=== PATIENT | male | born 1995 | race Hispanic/Latino ===

== ENCOUNTER 2022-07-12 10:44 | Day surgery (SDC) | payer OTHER ==
[~2022-07-12] VITALS: Ht 170.2 cm; Wt 101.6 kg
[~2022-07-12 10:44] MED LIST: LIDOCAINE 2% 100MG/5ML SDV (FOR ANES.) As Ordered ONE; MIDAZOLAM INJ 2MG/2ML VIAL (J2250 PER 1MG) As Ordered ONE; ONDANSETRON 4MG 2ML VIAL As Ordered ONE; ROCURONIUM BROMIDE 50 MG/5 ML VIAL As Ordered ONE; dexameTHASONE 4 MG/ML 1ML VIAL (J1100 PER 1MG) As Ordered ONE; fentaNYL 250 MCG/5 ML INJECTION As Ordered ONE; propofoL 200 MG/20 ML VIAL As Ordered ONE
[2022-07-12] MEDS ORDERED: LR 1,000 ML IV SCH (11:05)
[2022-07-12] MEDS ORDERED: OXYMETAZOLINE 0.05% NASAL SPRAY (AFRIN) As Ordered ONE (12:00)
[2022-07-12] MEDS ORDERED: BUPIVACAINE/EPIN 0.5% 30 ML VIAL As Ordered ONE (12:00)
[2022-07-12] MEDS ORDERED: METHYLENE BLUE 0.5% (5MG/ML) 10 ML AMP (PROVAYBLUE) As Ordered ONE (12:00)
[2022-07-12] MEDS ORDERED: ACETAMINOPHEN 1000MG 100ML IV BAG As Ordered ONE (12:12)
[2022-07-12] MEDS ORDERED: SUGAMMADEX SODIUM 500 MG/5 ML VIAL (BRIDION) As Ordered ONE (12:31)
[2022-07-12] MEDS ORDERED: oxyCODONE 5MG TAB PO PRN (13:05)
[2022-07-12] MEDS ORDERED: ONDANSETRON 4MG 2ML VIAL IV PRN ×2 (13:05→13:35)
[2022-07-12] MEDS: fentaNYL 100 MCG/2 ML INJECTION IV PRN ×2 (13:27→13:43)
[2022-07-12] MEDS ORDERED: HYDROcodone/APAP LIQUID 7.5-325MG 15ML UDC (LORTAB ELIXIR) PO PRN (13:35)
[2022-07-12 15:20] VITALS: BP 141/83
== END 2022-07-12 15:39 | disposition home or self-care (01) ==
LOC: M SDC 10:44
PROVIDERS: ATTEND Otolaryngology
DX: J35.03 Chronic tonsillitis and adenoiditis (principal); F17.200 Nicotine dependence, unspecified, uncomplicated
CPT/HCPCS: 42821; 88302; J0131; J1100; J2250; J2405; J3010

== ENCOUNTER 2024-09-22 23:07 | Emergency (ER) | payer OTHER ==
[~2024-09-22] VITALS: Ht 170.2 cm; Wt 120.2 kg
[2024-09-22 23:13] VITALS: TEMP 98.4
[2024-09-23] MEDS: KETOROLAC 30 MG/ML 1ML VIAL IV ONE (00:25)
[2024-09-23] MEDS: ONDANSETRON 4MG 2ML VIAL IV ONE (00:25)
[2024-09-23 00:53] LABS: BASO % 0.2 % (0.0-1.0); EOS % 0.3 % (0.0-3.0); HEMATOCRIT 46.4 % (42.0-52.0); HEMOGLOBIN 15.4 g/dl (13.5-17.5); LYMPH # 1.6 10^3/uL (1.5-5.0); MEAN CORPUSCULAR HGB CONC 33.2 g/dl (32.0-36.5); MEAN CORPUSCULAR VOLUME 90.3 fl (80.0-96.0); MONO % 7.9 % (2.0-8.0); NEUTROPHILS # 9.5 10^3/uL (1.5-8.5); NEUTROPHILS % 78.1 % (36.0-66.0); PLATELET COUNT, AUTOMATED 264 10^3/uL (150-450); RED BLOOD COUNT 5.14 10^6/uL (4.30-6.10); WHITE BLOOD COUNT 12.1 10^3/uL (4.0-10.0)
[2024-09-23 01:07] LABS: ALBUMIN 3.8 G/DL (3.2-5.2); BILIRUBIN,DIRECT 0.3 MG/DL (<0.4); BILIRUBIN,TOTAL 1.3 MG/DL (0.3-1.2); CALCIUM LEVEL 8.7 MG/DL (8.5-10.1); CREATININE FOR GFR 1.85 MG/DL (0.70-1.30); GLOMERULAR FILTRATION RATE 46.6 (>60); POTASSIUM SERUM 3.8 MMOL/L (3.5-5.1)
[2024-09-23] MEDS: NS (Normal Saline) 0.9% 1,000 ML IV ONE (01:10)
[2024-09-23 02:14] LABS: KETONE, URINE AUTO RFX NEGATIVE (NEGATIVE); LEUKOCYTE ESTERASE UR AUTO RFX NEGATIVE (NEGATIVE); NITRITE, URINE AUTO RFX NEGATIVE (NEGATIVE); RBC, URINE AUTO RFX 2 /HPF (0-3); SQUAM EPITHELIAL CELL UR AURFX 0 /HPF (0-6); WBC, URINE AUTO RFX 1 /HPF (0-3)
[2024-09-23] MEDS: ACETAMINOPHEN *IV* 1,000 MG in IV 1 EA IV ONE (02:18)
[2024-09-23 03:37] VITALS: BP 132/74; O2SAT 93
[2024-09-23] MEDS ORDERED: ONDA-282 PO (03:51)
== END 2024-09-23 04:18 | disposition home or self-care (01) ==
LOC: M ED 23:07
DX: A09 Infectious gastroenteritis and colitis, unspecified (principal); N17.9 Acute kidney failure, unspecified; Z79.899 Other long term (current) drug therapy
CPT/HCPCS: 74176; 76705; 80048; 80076; 81001; 83690; 85025; 87486; 87581; 87633; 87798; 93041; 96361; 96365; 96366; 96375; 99284; J0131; J1885; J2405

== ENCOUNTER → 2024-09-24 | Outpatient (CLI) | payer OTHER ==
[~2024-09-24] MED LIST changes: -LIDOCAINE 2% 100MG/5ML SDV (FOR ANES.) As Ordered ONE; -MIDAZOLAM INJ 2MG/2ML VIAL (J2250 PER 1MG) As Ordered ONE; +ONDA-282 PO; -ONDANSETRON 4MG 2ML VIAL As Ordered ONE; -ROCURONIUM BROMIDE 50 MG/5 ML VIAL As Ordered ONE; -dexameTHASONE 4 MG/ML 1ML VIAL (J1100 PER 1MG) As Ordered ONE; -fentaNYL 250 MCG/5 ML INJECTION As Ordered ONE; -propofoL 200 MG/20 ML VIAL As Ordered ONE
[2024-09-24 16:01] LABS: PLATELET COUNT, AUTOMATED 257 10^3/uL (150-450)
[2024-09-24 16:20] LABS: INR 1.01; PARTIAL THROMBOPLASTIN TIME 29.2 SECONDS (24.8-34.2); PROTHROMBIN TIME 13.6 SECONDS (12.5-14.5)
== END ==
LOC: M LAB 15:08
PROVIDERS: ATTEND Physician Assistant
DX: Z01.818 Encounter for other preprocedural examination (principal)